=== PATIENT | male | born 1990 | race Caucasian/White ===

== ENCOUNTER 2016-10-29 17:40 | Emergency (ER) | payer BC, OTHER ==
[2016-10-29 18:29] VITALS: BP 131/76
--- NOTE | 2016-10-29 19:04 | UC ---
Respiratory Complaint HPI - HPI Summary HPI Summary: The patient comes in today for: 1. Throat pain with coughing, hoarse voice, nasal congestion: Onset: 2 days ago Palliative/provocative: fluids helps with the comfort of the throat. Quality: [place] Region: Throat, upper respiratory Severity: 3/10 Time: Comes and goes. Associated symptoms: Rhinitis: clear. Cough: dry Fevers: None Chest pain: None Shortness of breath: None * - History of Current Complaint Chief Complaint: UCGeneralIllness Stated Complaint: ST/COUGH Time Seen by Provider: 10/29/16 18:55 Hx Obtained From: Patient - Allergies/Home Medications Allergies/Adverse Reactions: Allergies Allergy/AdvReac Type Severity Reaction Status Date / Time Amoxicillin Allergy Hives Verified 10/29/16 18:22 Cefaclor [From Ceclor] Allergy Hives Verified 10/29/16 18:22 Home Medications: Home Medications Amlodipine Besylate [Norvasc 10 mg tab] 10 mg PO DAILY 10/29/16 [History Confirmed 10/29/16] Aspirin EC Low Dose* [Ecotrin EC Low Dose 81 MG*] 81 mg PO DAILY 10/29/16 [ History Confirmed 10/29/16] Carvedilol TAB* [Coreg TAB*] 3.125 mg PO BID 10/29/16 [History Confirmed ] Diclofenac Sodium EC TAB* [Voltaren EC TAB*] 25 mg PO TID PRN 10/29/16 [History Confirmed 10/29/16] Hydrochlorothiazide TAB* [Hydrodiuril TAB*] 25 mg PO DAILY 10/29/16 [History Confirmed 10/29/16] Lovastatin [Altoprev] 20 mg PO DAILY 10/29/16 [History Confirmed 10/29/16] Multivitamins/Minerals TAB* [Thera M Plus TAB*] 1 tab PO DAILY 10/29/16 [ History Confirmed 10/29/16] Ramipril CAP* [Altace CAP*] 10 mg PO DAILY 10/29/16 [History Confirmed 10/29/16] metFORMIN* [Glucophage 1000 MG TAB *] 1,000 mg PO BID 10/29/16 [History Confirmed 10/29/16] PMH/Surg Hx/FS Hx/Imm Hx Previously Healthy: Yes - sore ankle-chronic. Endocrine History Of: Reports: Diabetes, Dyslipidemia Denies: Thyroid Disease, Hyperthyroidism, Hypothyroidism Cardiovascular History Of: Reports: Hypertension Denies: Cardiac Disorders, Pacemaker/ICD, Myocardial Infarction, Congestive Heart Failure, Atrial Fibrillation, Deep Vein Thrombosis, Bleeding Disorders Respiratory History Of: Denies: COPD, Asthma, Bronchitis, Pneumonia, Pulmonary Embolism GI/ History Of: Denies: Gastroesophageal Reflux, Ulcer, Gastrointestinal Bleed, Gall Bladder Disease, Kidney Stones, Diverticulitis, Renal Disease, Urosepsis Neurological History Of: Denies: TIA, CVA, Dementia, Seizures, Migraine Psychological History Of: Denies: Anxiety, Depression, Bipolar Disorder, Schizophrenia, Post Traumatic Stress Disorder Cancer History Of: Denies: Lung Cancer, Colorectal Cancer, Breast Cancer, Prostate Cancer, Cervical Cancer Other History Of: Negative For: HIV, Hepatitis B, Hepatitis C, Anticoagulant Therapy - Surgical History Surgical History: Yes Surgery Procedure, Year, and Place: T&A, ear tubes - Family History Known Family History: Positive: Hypertension Negative: Cardiac Disease - Social History Occupation: Employed Full-time Alcohol Use: None Substance Use Type: None Smoking Status (MU): Never Smoked Tobacco Review of Systems Constitutional: Negative Skin: Negative Eyes: Negative ENT: Sore Throat, Nasal Discharge Respiratory: Cough Cardiovascular: Negative Gastrointestinal: Negative Genitourinary: Negative All Other Systems Reviewed And Are Negative: Yes Physical Exam Triage Information Reviewed: Yes Appearance: Well-Appearing, No Pain Distress, Well-Nourished Vital Signs: Initial Vital Signs Temp 98.1 F 10/29/16 18:25 Pulse 86 10/29/16 18:25 Resp 16 10/29/16 18:25 BP 131/76 10/29/16 18:25 Pulse Ox 98 10/29/16 18:25 Eyes: Positive: Conjunctiva Clear. Negative: Discharge ENT: Negative: Hearing grossly normal, Pharyngeal erythema, Nasal congestion, Nasal drainage, TM bulging, TM dull, TM red, Tonsillar swelling, Tonsillar exudate Dental: Negative: Gross Decay/Caries @, Dental Fracture @ Neck: Positive: Supple, Nontender, No Lymphadenopathy. Negative: Nuchal Rigidity Respiratory: Positive: Chest non-tender, Lungs clear, No respiratory distress, No accessory muscle use. Negative: Rhonchi, Wheezing Cardiovascular: Positive: RRR, No Murmur Abdomen Description: Positive: Nontender, No Organomegaly, Soft. Negative: Distended, Guarding Musculoskeletal: Positive: Strength Intact, ROM Intact Neurological: Positive: Alert, Muscle Tone Normal Psychological: Positive: Age Appropriate Behavior, Consolable Skin: Negative: rashes, breakdown UC Diagnostic Evaluation - Laboratory O2 Sat by Pulse Oximetry: 98 Respiratory Course/Dx - Course Course Of Treatment: Patient was told that he appears to have a viral URI. Did not recommend antibiotics at this time but would be willing to give him an antibiotic in the event he does not get better and in fact develops increased sinus pressure, purulent nasal discharge and productive cough. He states that the cough keeps him up at night - Differential Dx/Diagnosis Differential Diagnosis/HQI/PQRI: Bronchitis, Laryngitis, Sinusitis Provider Diagnoses: Viral upper respiratory infection. Discharge - Discharge Plan Condition: Stable Disposition: HOME Patient Education Materials: Upper Respiratory Infection (ED), Laryngitis (ED) Referrals: No Primary Care Phys,NOPCP [Primary Care Provider] - 1 Week (Please see your primary care provider in about 1 week to see how you are doing. If you don't have a primary care provider, please reference the included sheet of local provider. If you get worse, please be seen sooner.)
== END 2016-10-29 19:23 | disposition home or self-care (01) ==
LOC: UCCORT 17:40
DX: J06.9 Acute upper respiratory infection, unspecified (principal); E11.9 Type 2 diabetes mellitus without complications; Z79.84 Long term (current) use of oral hypoglycemic drugs; E78.5 Hyperlipidemia, unspecified; I10 Essential (primary) hypertension
CPT/HCPCS: 99212; G0463

== ENCOUNTER 2018-10-21 14:55 | Emergency (ER) | payer OTHER ==
[2018-10-21 15:23] VITALS: BP 142/78
--- NOTE | 2018-10-21 15:45 | UC ---
Eye Complaint HPI - HPI Summary HPI Summary: 28-year-old male presents with complaints of right eye redness and tearing for the past week. States he has woken of the past couple of days with his eye matted shut. Denies fever, chills, eye pain, itching, visual disturbances, photophobia, eye injury, or URI symptoms. Does not wear contacts. - History of Current Complaint Chief Complaint: UCEye Stated Complaint: WATERY EYES Time Seen by Provider: 10/21/18 15:37 Hx Obtained From: Patient Pain Intensity: 0 - Allergies/Home Medications Allergies/Adverse Reactions: Allergies Allergy/AdvReac Type Severity Reaction Status Date / Time amoxicillin Allergy Hives Verified 10/21/18 15:13 cefaclor Allergy Hives Verified 10/21/18 15:13 Home Medications: Home Medications glipiZIDE TAB* [Glucotrol TAB*] 20 mg PO DAILY 10/21/18 [History Confirmed 10/21] PMH/Surg Hx/FS Hx/Imm Hx Endocrine History: Diabetes, Dyslipidemia Cardiovascular History: Hypertension Other History Of: Negative For: HIV, Hepatitis B, Hepatitis C, Anticoagulant Therapy - Surgical History Surgical History: Yes Surgery Procedure, Year, and Place: T&A, ear tubes - Family History Known Family History: Positive: Hypertension Negative: Cardiac Disease - Social History Occupation: Employed Full-time Lives: With Family Alcohol Use: None Substance Use Type: None Smoking Status (MU): Never Smoked Tobacco Have You Smoked in the Last Year: No Review of Systems All Other Systems Reviewed And Are Negative: Yes Constitutional: Negative: Fever, Chills Eyes: Positive: Drainage, Eye Redness. Negative: Blurred Vision, Diplopia, Photophobia ENT: Negative: Sore Throat, Nasal Discharge, Sinus Congestion, Sinus Pain/ Tenderness Respiratory: Negative: Cough Cardiovascular: Positive: Negative Gastrointestinal: Positive: Negative Genitourinary: Positive: Negative Musculoskeletal: Positive: Negative Neurological: Positive: Negative Is Patient Immunocompromised?: No Physical Exam - Summary Physical Exam Summary: GENERAL APPEARANCE: Alert and cooperative, morbidly obese male who appears to be in no acute distress. EYES: Significant conjunctival erythema and edema with tearing. PERRL, EOM intact. Vision is grossly intact. EARS: External auditory canals and tympanic membranes clear, hearing grossly intact. NOSE: No nasal discharge. THROAT: Pharynx normal. Tonsils surgically absent. Uvula midline. NECK: Neck supple, non-tender without lymphadenopathy. CARDIAC: Normal S1 and S2. No S3, S4 or murmurs. Rhythm is regular. There is no peripheral edema, cyanosis or pallor. Extremities are warm and well perfused. Capillary refill is less than 2 seconds. Peripheral pulses intact. LUNGS: Clear to auscultation without rales, rhonchi, wheezing or diminished breath sounds. ABDOMEN: Positive bowel sounds. Soft, nondistended, nontender. No guarding or rebound. No masses or hepatosplenomegally. MUSKULOSKELETAL: ROM intact to all extremities. No joint erythema or tenderness. Normal muscular development. Normal gait. SKIN: Skin normal color, texture and turgor with no lesions or eruptions. Triage Information Reviewed: Yes Vital Signs: Initial Vital Signs Temp 97.6 F 10/21/18 15:15 Pulse 93 10/21/18 15:15 Resp 22 10/21/18 15:15 BP 142/78 10/21/18 15:15 Pulse Ox 96 10/21/18 15:15 Vital Signs Reviewed: Yes Eye Complaint Course/Dx - Course Course Of Treatment: 28-year-old male presents with complaints of right eye redness and tearing for the past week. States he has woken of the past couple of days with his eye matted shut. Denies fever, chills, eye pain, itching, visual disturbances, photophobia, eye injury, or URI symptoms. Does not wear contacts. Afebrile. Vital signs stable. Exam reveals significant conjunctival erythema of the right eye with tearing and was otherwise unremarkable. Visual acuity normal. Will treat him for an acute bacterial conjunctivitis using Polytrim ophthalmic 1 drop every 3 hours while awake 7 days. He is to follow-up with ophthalmology in 2-3 days if symptoms do not improve. Anticipatory guidance and warning symptoms were reviewed with the patient. Verbalizes understanding and agrees with plan of care. - Differential Dx/Diagnosis Differential Diagnosis/HQI/PQRI: Conjunctivitis, Corneal Abrasion, Foreign Body , Periorbital Cellulitis, Uveitis Provider Diagnosis: Bacterial conjunctivitis of right eye Discharge - Sign-Out/Discharge Documenting (check all that apply): Patient Departure All imaging exams completed and their final reports reviewed: No Studies - Discharge Plan Condition: Stable Disposition: HOME Prescriptions: Polymyx/Trimethoprim OPTH* [Polytrim OPHTH*] 1 drop RIGHT EYE Q3H #1 btl MDD 6 doses Patient Education Materials: Conjunctivitis (ED) Referrals: Uma Robertson PA [Primary Care Provider] - Jaswinder Blackwell MD [Medical Doctor] - Additional Instructions: Start Polytrim ophthalmic 1 drop in the affected eye every 3 hours while awake for maximum of 6 doses a day for the next 7 days. To avoid reinfection or spreading infection: * Use washcloths and towels once then launder. * Do not share washcloths or towels with others. * Change your pillow case each morning until you have finished treatment. Follow up with Dr. Jaswinder Blackwell, ophthalmology, in 2-3 days if no improvement. Call for appointment. Seek immediate medical attention in the emergency room if you develop fever greater than 100.5 F, have pain or swelling of the eye, visual disturbances, loss of vision, or any worsening of symptoms. - Billing Disposition and Condition Condition: STABLE Disposition: Home
== END 2018-10-21 15:50 | disposition home or self-care (01) ==
LOC: UCCORT 14:55
DX: H10.33 Unspecified acute conjunctivitis, bilateral (principal); E11.9 Type 2 diabetes mellitus without complications; E78.5 Hyperlipidemia, unspecified; I10 Essential (primary) hypertension; Z88.0 Allergy status to penicillin; Z88.8 Allergy status to other drugs, medicaments and biological substances
CPT/HCPCS: 99212; G0463

== ENCOUNTER 2019-04-06 14:25 | Emergency (ER) | payer OTHER ==
--- OUTSIDE RECORDS SUMMARY | 2019-04-06 14:39 | XMS REPORT | Continuity of Care Document ---
:1990 External Reference #:[id number] Author Name Golden Baltazar PA Address [address] [place] [address] Care Team Providers Name Role Phone West Grewal MD - Nephrology Care Team Information Crop Nutrition Scientist [phone] Toña Robertson PA - Physician Care Team Information Crop Nutrition Scientist Banking Attorney Problems Active Problems Provider Date Benign essential hypertension Ted Sue M.D. Onset: 01/18/2019 Pure hypercholesterolemia Ted Sue M.D. Onset: 01/18/2019 Retention of urine Ted Sue M.D. Onset: 01/18/2019 Social History Type Date Description Comments Sex Unknown ETOH Use Denies alcohol use Tobacco Use Start: Unknown Patient denies history of smoking Recreational Drug Use Never Used Drugs Smoking Status Reviewed: 02/01/19 Patient denies history of smoking Allergies, Adverse Reactions, Alerts Active Allergies Reaction Severity Comments Date Penicillin Hives 01/18/2019 Medications Active Medications SIG Qnty Indications Ordering Provider Date Amlodipine Besylate 1 by mouth every Unknown day 10mg Tablets Glipizide 1 by mouth twice a Unknown 10mg Tablets day Lovastatin 1 by mouth every Unknown 20mg Tablets day Magnesium 1 by mouth every Unknown 400mg Tablets day for the prevention of headache Carvedilol take one tablet by Unknown 3.125mg mouth twice a day Tablets Metformin HCL ER 1 tab by mouth Unknown (Mod) twice a day as 1000mg Tablets ER directed 24HR Ramipril 1 by mouth every Unknown 10mg Capsules day Immunizations Description No Information Available Vital Signs Date Vital Result Comment 03/14/2019 1:27pm BP Systolic 130 mmHg BP Diastolic 77 mmHg Body Temperature 98.7 F Heart Rate 94 /min Respiratory Rate 16 /min Height 66 inches 5'6" Weight 458.00 lb BMI (Body Mass Index) 73.9 kg/m2 BSA (Body Surface Area) 2.84 m2 [place] body weight in kilograms 64 kg O2 % BldC Oximetry 95 % Pain Level 0 01/24/2019 11:07am BP Systolic 135 mmHg BP Diastolic 78 mmHg Body Temperature 97.5 F Heart Rate 104 /min Respiratory Rate 20 /min Height 66 inches 5'6" Weight 460.00 lb BMI (Body Mass Index) 74.2 kg/m2 BSA (Body Surface Area) 2.85 m2 [place] body weight in kilograms 64 kg O2 % BldC Oximetry 90 % Ra Pain Level 4 feet Results Description No Information Available Procedures Date Code Description Status 01/18/2019 85445 Irrigation Of Bladder Completed Medical Devices Description No Information Available Encounters Type Date Location Provider Dx Diagnosis Office Visit 03/14/2019 Urology Golden Baltazar, R33.8 Other retention of 1:15p PA urine Office Visit 01/24/2019 Urology Golden Baltazar, R33.8 Other retention of 11:15a PA urine Office Visit 01/18/2019 Urology Ted Sue R33.8 Other retention of 2:45p M.DNya urine Assessments Date Code Description Provider 03/14/2019 R33.8 Other retention of urine Golden Baltazar PA 01/24/2019 R33.8 Other retention of urine Golden Baltazar PA 01/18/2019 R33.8 Other retention of urine Ted Sue M.D. Plan of Treatment Future Appointment(s):05/30/2019 1:00 pm - Golden Baltazar PA at [id number] - Golden Baltazar, PAR33.8 Other retention of urineNew Xrays: Ultrasound, Renal & Bladder, Scheduled: 05/23/19Comments:Have a renal bladder ultrasound performed and follow-up in 3 months. He seen on a when necessary basis for any acute voiding symptoms or symptoms of a UTI Functional Status Description No Information Available Mental Status Description No Information Available Referrals Description No Information Available
--- NOTE | 2019-04-06 16:09 | UC ---
Respiratory Complaint HPI - HPI Summary HPI Summary: 28 y/o obese male w/ PMHX of DM type II and HTN and asthma presents to the urgent care accompany by mother c/o sinus congestion w/ yellowish nasal discharge and productive cough w/ severe PND. His ears feel full and pressure associated w/ sinus pain and sinus pain and chest congestion. This morning he developed RT ear pain 4/10, mild wheezing and B/L red eyes and yellowish eye discharge. Pt has taken Tylenol PO to alleviate symptom since last night he felt hot. Pt reports he was hospitalized for sepsis due to a foot infection on 01/03/19-01/07/19. Pt denies SOB, dizziness, JAFFE, abdominal pain, chest pain, N/V/ D, visual changes, photophobia, blurred visions. - History of Current Complaint Chief Complaint: UCRespiratory Stated Complaint: COUGH,CONGESTION,RT EAR COMPLAINT Time Seen by Provider: 04/06/19 16:08 Hx Obtained From: Patient Onset/Duration: Gradual Onset, Lasting Weeks - 1 week, Still Present, Worse Since - yesterday w/ productive cough Timing: Intermittent Episodes Severity Initially: Mild Severity Currently: Mild Pain Intensity: 4 Pain Scale Used: 0-10 Numeric Character: Cough: Productive, Sputum Description: - yellowish Aggravating Factors: Recumbent Position Alleviating Factors: OTC Meds - tylenol PO Associated Signs And Symptoms: Positive: Fever - first day of symptoms subjective, Wheezing - mild last night, URI, Nasal Congestion, Sinus Discomfort. Negative: Chills, Dizziness - Risk Factors Pulmonary Embolism Risk Factors: Negative Cardiac Risk Factors: Negative Pseudomonas Risk Factors: Negative Tuberculosis Risk Factors: Negative - Allergies/Home Medications Allergies/Adverse Reactions: Allergies Allergy/AdvReac Type Severity Reaction Status Date / Time amoxicillin Allergy Hives Verified 04/06/19 15:16 cefaclor Allergy Hives Verified 04/06/19 15:16 Home Medications: Home Medications Robitussin With Honey 1 dose PO Q6H PRN 04/06/19 [History Confirmed 04/06/19] guaiFENesin [Mucinex] 600 mg PO BID PRN 04/06/19 [History Confirmed 04/06/19] PMH/Surg Hx/FS Hx/Imm Hx - Additional Past Medical History Additional PMH: sepsis in 12/2018 s/p ingrown toe nail Previously Healthy: Yes Endocrine History: Diabetes Cardiovascular History: Hypertension Respiratory History: Asthma - which has been control Other History Of: Negative For: HIV, Hepatitis B, Hepatitis C, Anticoagulant Therapy - Surgical History Surgical History: Yes Surgery Procedure, Year, and Place: T&A, ear tubes - Family History Known Family History: Positive: Cardiac Disease, Hypertension, Diabetes - Social History Occupation: Employed Full-time Lives: With Family Alcohol Use: None Substance Use Type: None Smoking Status (MU): Never Smoked Tobacco Have You Smoked in the Last Year: No Review of Systems All Other Systems Reviewed And Are Negative: Yes Constitutional: Positive: Other - bodyaches Skin: Positive: Negative Eyes: Positive: Drainage - yellowish, Eye Redness - B/L eye red ENT: Positive: Sore Throat, Ear Ache - RT ear pain, Nasal Discharge - yellowish , Sinus Congestion, Sinus Pain/Tenderness, Other - moderate PND Respiratory: Positive: Cough - productive, Other - mild wheezing Cardiovascular: Positive: Negative Gastrointestinal: Positive: Negative Genitourinary: Positive: Negative Motor: Positive: Negative Neurovascular: Positive: Negative Musculoskeletal: Positive: Negative Neurological: Positive: Headache Psychological: Positive: Negative Is Patient Immunocompromised?: No Physical Exam - Summary Physical Exam Summary: VITAL SIGNS: Reviewed. GENERAL: Patient is a well developed and nourished morbidly obese male who is sitting comfortable in the examining table. Patient is not in any acute respiratory distress. HEAD AND FACE: No signs of trauma. No ecchymosis, hematomas or skull depressions. positive maxillary and frontal sinus tenderness on percussion. EYES: PERRLA, EOMI x 2, B/L eyes injected conjunctiva w/ yellowish eye discharge , no nystagmus. No photophobia. EARS: Hearing grossly intact. B/L Ear canals clear, RT TM injected w/ erythema and yellowish prosufe drainage, LF TM WNL. No perforation. MOUTH: Positive pharynx with erythema, exudates, palatal petechiae. B/L tonsillar enlargement with no exudate. Uvula in midline. yellowish PND NECK: Supple, trachea is midline, Positive anterior cervical lymphadenopathy, no JVD, no carotid bruit, no c-spine tenderness, neck with full ROM. No meningeal signs, no Kernig's or brudzinskis signs. Chest: no orthopnea or dyspnea. Able to speak in full sentences, no retractions or accessory muscle use, no tripod position, - no grunting, stridor, or head bobbing. CTA bilaterally, B/L posterior upper lungs w/ mild wheezing, no rales, rhonchi, rales. LUNGS: Clear to auscultation bilaterally. No wheezing or crackles. CVS: Regular rate and rhythm, S1 and S2 present, no murmurs or gallops appreciated. ABDOMEN: Soft, non-tender. No signs of distention. No rebound no guarding, and no masses palpated. Bowel sounds are normal. EXTREMITIES: FROM in all major joints, no edema, no cyanosis or clubbing. NEURO: Alert and oriented x 3. No acute neurological deficits. Speech is normal and follows commands. SKIN: Dry and warm Triage Information Reviewed: Yes Vital Signs: Initial Vital Signs Temp 98.3 F 04/06/19 15:12 Pulse 100 04/06/19 15:12 Resp 20 04/06/19 15:12 BP 149/75 04/06/19 15:12 Pulse Ox 97 04/06/19 15:12 Respiratory Course/Dx - Course Course Of Treatment: 28 y/o obese male w/ PMHX of DM type II and HTN and asthma presents to the urgent care accompany by mother c/o sinus congestion w/ yellowish nasal discharge and productive cough w/ severe PND. His ears feel full and pressure associated w/ sinus pain and sinus pain and chest congestion. This morning he developed RT ear pain 4/10, mild wheezing and B/L red eyes and yellowish eye discharge. Pt has taken Tylenol PO to alleviate symptom since last night he felt hot. Pt reports he was hospitalized for sepsis due to a foot infection on 01/03/19-01/07/19. Pt denies SOB, dizziness, JAFFE, abdominal pain, chest pain, N/V/ D, visual changes, photophobia, blurred visions. Hx obtained. Pt is hemodynamically stable, A&OX3, Vitals: WNL. Pt w/ B/l conjunctivitis , acute bacterial sinusitis and RT otitis Media and mild wheezing in the posterior upper lungs on examination. O2Sat:97%. Rapid strep: negative. Chest X-ray: IMPRESSION: No radiographic evidence of acute cardiopulmonary disease as per radiologist. Pt given Ibuprofen PO and Duoneb Treatment to alleviate symptoms. Pt tolerated well treatment and lungs improved,and wheezing resolved. Pt's O2 Sat was retaken by Nurse and it went down to 94% However due to his increased central obesity, I retake it after deep breathing and standing up and it was O2Sat:96%. Pt advised to encourage deep breathings at times. Pt with 1 week of symptoms getting worse. Pt PNC allergic, Pt Rx Doxycycline PO and flonase nasal spray, and ciprofloaxin and albuterol inhaler as directed below. Pt strongly recommended if symptoms worsen w/ fever, SOB and severe wheezing to go immediately to the ER for further management , otherwise to w/u w/ his PCP for further management if not improvement. Pt's BP is elevated today advised to decrease salt in diet, monitor BP and f/u with PCP for further management. Discharge instructions explained to Pt..Pt understood and agreed with plan of care. Pt left the clinic hemodynamically stable , A&OX3, and ambulating. - Differential Dx/Diagnosis Differential Diagnosis/HQI/PQRI: Asthma, Bronchitis, Influenza, Lower Resp Infection, Sinusitis, Other - pneumonia Provider Diagnosis: Acute bacterial conjunctivitis of both eyes, Right otitis media, Cough, Uncontrolled hypertension Discharge ED - Sign-Out/Discharge Documenting (check all that apply): Patient Departure - D/C home All imaging exams completed and their final reports reviewed: Yes - Discharge Plan Condition: Stable Disposition: HOME Prescriptions: Albuterol HFA INHALER* [Ventolin HFA Inhaler*] 1 - 2 puff INH Q6H PRN #1 mdi PRN Reason: bronchospasm/wheezing Ciprofloxacin 0.3% OPTH.TRACIE* [Cipro 0.3% Opth*] 1 drop BOTH EYES Q2H #1 btl DOXYcycline CAP(*) [DOXYcycline 100MG CAP(*)] 100 mg PO BID #20 cap Fluticasone NASAL SPRAY 50MCG* [Flonase NASAL SPRAY 50MCG*] 2 spray BOTH NARES DAILY #1 btl Patient Education Materials: Sinusitis (ED), Ear Infection (ED) Referrals: Uma Robertson PA [Primary Care Provider] - 3 Days Additional Instructions: 1- Please increase fluid intake and rest. take full course of antibiotics to avoid resistance. Take yogurts w/ probiotics or Culturelle to protect your GI system 2-Use Flonase as directed to help drain fluid. Also buy saline drops to clear sinuses 3-Continue taking Robitussin PO to alleviates cough 4-Please apply ophthalmic drops as instructed and finish the full course of treatment to avoid recurrent infection. wash your eye and eyebrows w/ baby Moe shampoo as directed. encourage hadn washing to avoid spreading 5-Please f/u w/ your PCP in 3 days if symptoms do not improve for further management and treatment 6- If symptoms worsen and your develop sever wheezing w/ SOB, please go immediately to the ER for further management 7- Your BP is elevated today. please decrease salt in your diet, monitor BP and if it continues to be elevated please f/u with your PCP for further management. - Billing Disposition and Condition Condition: STABLE Disposition: Home
[2019-04-06] MEDS ORDERED: Albuterol 2.5 MG/3 ML NEB.SOL* (0.083%) INH ONE (16:34)
[2019-04-06 16:50] LABS: Influenza A Molecular NEGATIVE (Negative); Influenza B Molecular NEGATIVE (Negative)
[2019-04-06 17:42] VITALS: BP 130/59
== END 2019-04-06 17:56 | disposition home or self-care (01) ==
LOC: UCCORT 14:25
DX: H10.33 Unspecified acute conjunctivitis, bilateral (principal); H66.91 Otitis media, unspecified, right ear; I10 Essential (primary) hypertension; E11.9 Type 2 diabetes mellitus without complications; B96.89 Other specified bacterial agents as the cause of diseases classified elsewhere; R09.81 Nasal congestion; R09.89 Other specified symptoms and signs involving the circulatory and respiratory systems; R05 Cough; R09.82 Postnasal drip; Z88.0 Allergy status to penicillin; Z88.1 Allergy status to other antibiotic agents
CPT/HCPCS: 71046; 87651; 99213; G0463